=== PATIENT | female | born 1955 | race Caucasian/White ===

== ENCOUNTER → 2017-06-05 | Outpatient (CLI) | payer MEDICARE ==
[~2017-06-05] MED LIST: ADVIL200 M1 PO; ARTANE PO; GLUCOPHAGE500 MG PO; LOSARTAN POTASS25 MG PO; PROLIXIN PO; SPIRONOLACTONE50 MG PO; SYNTHROID150 MCG PO; XANAX0.5 MG PO; ZOLOFT50 MG PO
[2017-06-05 15:41] LABS: BILIRUBIN,URINE NEGATIVE (NEGATIVE); KETONES,URINE NEGATIVE (NEGATIVE); LEUKOCYTE ESTERASE ,URINE TRACE (NEGATIVE); NITRITE,URINE NEGATIVE (NEGATIVE); URINE UROBILINOGEN 0.2 mg/dL (0.2 - 1)
[2017-06-05 15:42] LABS: PROTEIN,URINE DIPSTICK 1+ (NEGATIVE)
[2017-06-05 15:43] LABS: CLARITY,URINE CLEAR (CLEAR); COLOR,URINE STRAW (YELLOW)
--- NOTE | 2017-06-05 17:36 | Diagnostic Imaging Report ---
PROCEDURE:KNEE THREE VIEWS BILATERAL COMPARISON:None. INDICATIONS:ONGOING BILATERAL KNEE PAIN FINDINGS: Right: There are no acute, displaced fractures, dislocations, lytic or blastic lesions. The bones are well-mineralized. Minimal tricompartmental degenerative joint changes with small marginal osteophytes in the patella and tibia. Joint spaces are relatively well-preserved. The soft-tissues are unremarkable. No suprapatellar effusion. Left: There are no acute, displaced fractures, dislocations, lytic or blastic lesions. The bones are well-mineralized. Minimal tricompartmental degenerative joint disease with presence of tiny marginal osteophytes in the patella. Joint spaces are otherwise well-preserved. The soft-tissues are unremarkable. No suprapatellar effusion. CONCLUSION: No acute abnormalities. Minimal bilateral degenerative changes. Rohit Magallanes M.D. Dictated by: Rohit Magallanes M.D. on 06/05/2017 at 17:44 Electronically approved by: Rohit Magallanes M.D. on 06/05/2017 at 17:44
--- NOTE | 2017-06-05 18:32 | Diagnostic Imaging Report ---
PROCEDURE:HIPS BILAT TWO VWS(+/- PELVIS) INDICATION:Bilateral hip pain COMPARISON:None. FINDINGS: Normal mineralization. No acute displaced fractures or dislocations. Joint spaces are relatively well-preserved. No lytic or blastic lesions. Soft tissues are grossly unremarkable. CONCLUSION: No acute abnormalities. Rohit Magallanes M.D. Dictated by: Rohit Magallanes M.D. on 06/05/2017 at 18:40 Electronically approved by: Rohit Magallanes M.D. on 06/05/2017 at 18:40
== END ==
LOC: RAD 14:40
PROVIDERS: ATTEND Internal Medicine Pulmonary Disease
DX: M25.552 Pain in left hip (principal); M25.551 Pain in right hip; M25.562 Pain in left knee; M25.561 Pain in right knee
CPT/HCPCS: 73521; 81003; 87086

== ENCOUNTER → 2017-09-17 | Outpatient (CLI) | payer MEDICARE ==
[2017-09-17 12:29] LABS: BASOPHILS # (AUTO) 0.1 (0.0-0.1); BASOPHILS % 0.6 % (0.0-1.0); EOSINOPHILS # (AUTO) 0.2 (0.0-0.4); EOSINOPHILS % 1.3 % (0.0-6.0); HEMATOCRIT 38.9 % (34.2-44.1); HEMOGLOBIN 13.1 g/dL (12.0-16.0); LYMPHOCYTES # (AUTO) 2.5 (1.0-3.2); LYMPHOCYTES % 18.9 % (18.0-39.1); MEAN CORPUSCULAR HEMOGLOBIN 28.9 pg (28-32); MEAN CORPUSCULAR HGB CONC 33.7 g/dL (31-35); MEAN CORPUSCULAR VOLUME 85.7 fL (81-99); MONOCYTES # (AUTO) 0.8 (0.2-0.8); MONOCYTES % 5.6 % (4.4-11.3); NEUTROPHILS # (AUTO) 9.8 (2.1-6.9); NEUTROPHILS % 73.1 % (38.7-80.0); PLATELET COUNT 301 x10e3/uL (140-360); RED BLOOD COUNT 4.54 x10e6/uL (3.6-5.1); RED CELL DISTRIBUTION WIDTH 13.6 % (11.7-14.4)
[2017-09-17 12:48] LABS: CALCIUM 10.5 mg/dL (8.4-10.2); CHOL/HDL RATIO 4.1 (3.0-3.6); CREATININE, SERUM 0.95 mg/dL (0.57-1.11)
== END ==
LOC: LAB 12:04
PROVIDERS: ATTEND Internal Medicine Pulmonary Disease
DX: E11.9 Type 2 diabetes mellitus without complications (principal)
CPT/HCPCS: 36415; 80048; 80061; 82044; 85025

== ENCOUNTER → 2018-01-01 | Outpatient (CLI) | payer MEDICARE ==
[2018-01-01 12:40] LABS: CALCIUM IONIZED 1.2 mmol/L (1.09-1.30)
[2018-01-01 12:55] LABS: ANION GAP 12.3 mmol/L (8-16); BLOOD UREA NITROGEN 7 mg/dL (7-26); BUN/CREATININE RATIO 9 (6-25); CALCIUM 10.3 mg/dL (8.4-10.2); CARBON DIOXIDE 29 mmol/L (22-29); CHLORIDE 98 mmol/L (98-107); CREATININE, SERUM 0.79 mg/dL (0.57-1.11); EST GLOMERULAR FILTRATION RATE > 60 ML/MIN (60-); GLUCOSE 124 mg/dL (74-118); POTASSIUM 4.3 mmol/L (3.5-5.1); SODIUM 135 mmol/L (136-145)
== END ==
LOC: LAB 12:19
PROVIDERS: ATTEND Internal Medicine Pulmonary Disease
DX: E11.9 Type 2 diabetes mellitus without complications (principal)
CPT/HCPCS: 36415; 80048; 82330; 82652; 83036; 83970

== ENCOUNTER → 2018-12-25 | Outpatient (CLI) | payer MEDICARE ==
[2018-12-25 15:43] LABS: BASOPHILS # (AUTO) 0.1 (0.0-0.1); BASOPHILS % 0.4 % (0.0-1.0); BILIRUBIN,URINE NEGATIVE (NEGATIVE); CLARITY,URINE CLOUDY (CLEAR); COLOR,URINE YELLOW (YELLOW); EOSINOPHILS # (AUTO) 0.2 (0.0-0.4); EOSINOPHILS % 1.1 % (0.0-6.0); HEMATOCRIT 37.3 % (34.2-44.1); HEMOGLOBIN 12.3 g/dL (12.0-16.0); KETONES,URINE NEGATIVE (NEGATIVE); LEUKOCYTE ESTERASE ,URINE SMALL (NEGATIVE); LYMPHOCYTES # (AUTO) 2.5 (1.0-3.2); LYMPHOCYTES % 18.5 % (18.0-39.1); MEAN CORPUSCULAR HEMOGLOBIN 28.7 pg (28-32); MEAN CORPUSCULAR VOLUME 86.9 fL (81-99); MONOCYTES % 7.1 % (4.4-11.3); NEUTROPHILS # (AUTO) 9.9 (2.1-6.9); NEUTROPHILS % 72.2 % (38.7-80.0); NITRITE,URINE NEGATIVE (NEGATIVE); PLATELET COUNT 281 x10e3/uL (140-360); PROTEIN,URINE DIPSTICK NEGATIVE (NEGATIVE); RED BLOOD COUNT 4.29 x10e6/uL (3.6-5.1); RED CELL DISTRIBUTION WIDTH 13.6 % (11.7-14.4); URINE UROBILINOGEN 0.2 mg/dL (0.2 - 1)
[2018-12-25 16:06] LABS: CHOL/HDL RATIO 3.8 (3.0-3.6)
[2018-12-25 16:13] LABS: B-TYPE NATRIURETIC PEPTIDE2 31.8 pg/mL (0-100)
[2018-12-25 16:26] LABS: FREE THYROXINE INDEX 2.7793 (1.4-3.8); THYROID STIMULATING HORMONE 4.202 uIU/mL (0.350-4.940)
--- NOTE | 2018-12-25 16:36 | Diagnostic Imaging Report ---
EXAMINATION: SP LUMBAR, COMPLETE MIN 4VW INDICATION: Back pain COMPARISON: None FINDINGS: No compression fracture. Vertebral body heights are maintained. There is grade 1 anterolisthesis at L4-5. Alignment is otherwise normal. Mild degenerative changes of the lower lumbar spine. Nonobstructive bowel gas pattern. Atherosclerotic arterial vascular calcifications. IMPRESSION: No compression fracture. Grade 1 anterolisthesis at L4-5. Lower lumbar spine degenerative changes. Signed by: Daniel Cheatham MD on 12/25/2018 4:33 PM
== END ==
LOC: RAD 14:57
PROVIDERS: ATTEND Internal Medicine Pulmonary Disease
DX: M54.5 Low back pain (principal); N39.0 Urinary tract infection, site not specified; E03.9 Hypothyroidism, unspecified
CPT/HCPCS: 36415; 72110; 80061; 81003; 83036; 83880; 84436; 84443; 84479; 85025; 87086

== ENCOUNTER → 2021-01-03 | Outpatient (CLI) | payer MEDICARE, OTHER ==
[~2021-01-03] MED LIST changes: +CELEBREX200 MG PO; +DOXYCYCLINE HY100 MG PO; +FLUPHENAZINE HC10 MG PO; +HYDRALAZINE HCL25 MG PO; +LYRICA75 MG PO; +METOPROLOL TART25 MG PO; +SPIRONOLACTONE25 MG PO; +SYNTHROID50 MCG PO; +TRIHEXYPHENIDYL5 MG PO; +aldomet PO
[2021-01-03 10:56] LABS: ANION GAP 12.6 mmol/L (8-16); CALCIUM 9.2 mg/dL (8.4-10.2); CREATININE, SERUM 0.93 mg/dL (0.57-1.11); POTASSIUM 4.6 mmol/L (3.5-5.1)
== END ==
LOC: RAD 10:14
PROVIDERS: ATTEND Internal Medicine Pulmonary Disease
DX: N39.0 Urinary tract infection, site not specified (principal)
CPT/HCPCS: 36415; 80048; 87086; 87186

== ENCOUNTER 2021-11-26 17:32 | Emergency (ER) | payer MEDICARE, OTHER ==
[~2021-11-26] VITALS: Ht 162.6 cm; Wt 136.1 kg
[2021-11-26 18:00] LABS: BASOPHILS % 0.2 % (0.0-1.0); EOSINOPHILS # (AUTO) 0.1 (0.0-0.4); EOSINOPHILS % 0.5 % (0.0-6.0); HEMATOCRIT 38.2 % (34.2-44.1); HEMOGLOBIN 12.4 g/dL (12.0-16.0); LYMPHOCYTES % 14.5 % (18.0-39.1); MEAN CORPUSCULAR HGB CONC 32.5 g/dL (31-35); MEAN CORPUSCULAR VOLUME 92.3 fL (81-99); MONOCYTES # (AUTO) 1.2 (0.2-0.8); MONOCYTES % 8.7 % (4.4-11.3); NEUTROPHILS # (AUTO) 10.3 (2.1-6.9); NEUTROPHILS % 74.8 % (38.7-80.0); PLATELET COUNT 306 x10e3/uL (140-360); RED BLOOD COUNT 4.14 x10e6/uL (3.6-5.1); RED CELL DISTRIBUTION WIDTH 13.2 % (11.7-14.4)
[2021-11-26 18:26] LABS: ALANINE AMINOTRANSFERASE 13 IU/L (0-55); ALBUMIN 3.6 g/dL (3.5-5.0); ALBUMIN/GLOBULIN RATIO 0.9 (0.8-2.0); ALKALINE PHOSPHATASE 140 IU/L (40-150); ANION GAP 16.9 mmol/L (8-16); BLOOD UREA NITROGEN 17 mg/dL (7-26); BUN/CREATININE RATIO 15 (6-25); CALCIUM 9.4 mg/dL (8.4-10.2); CARBON DIOXIDE 23 mmol/L (22-29); CHLORIDE 96 mmol/L (98-107); CREATINE KINASE 90 IU/L (29-168); CREATININE, SERUM 1.13 mg/dL (0.57-1.11); GLUCOSE 154 mg/dL (74-118); POTASSIUM 4.9 mmol/L (3.5-5.1); SODIUM 131 mmol/L (136-145)
[2021-11-26] MEDS ORDERED: MEPERIDINE HCL INJ 50 MG/ML INJ IV STA (20:28)
[2021-11-26] MEDS ORDERED: CIPRO500 MG PO (20:46)
[2021-11-26] MEDS ORDERED: KETOROLAC TROMETHAMINE 30 MG/ML VIAL ONE (21:09)
[2021-11-26] MEDS ORDERED: KETOROLAC TROME10 MG PO (22:44)
[2021-11-26] MEDS ORDERED: KETOROLAC TROMETHAMINE 30 MG/ML VIAL IV STA (23:10)
[2021-11-26 23:12] VITALS: BP 156/76
== END 2021-11-26 23:14 | disposition home or self-care (01) ==
LOC: ER 17:40
DX: S82.142A Displaced bicondylar fracture of left tibia, initial encounter for closed fracture (principal); W19.XXXA Unspecified fall, initial encounter; Y92.019 Unspecified place in single-family (private) house as the place of occurrence of the external cause; F20.9 Schizophrenia, unspecified; R42 Dizziness and giddiness; E66.9 Obesity, unspecified; Z68.43 Body mass index [BMI] 50.0-59.9, adult
CPT/HCPCS: 36415; 70450; 71045; 73560 ×2; 80053; 82550; 82553; 84484; 85025; 93005; 99284; J1885; J2175

== ENCOUNTER → 2022-03-06 | Outpatient (CLI) | payer MEDICARE, OTHER ==
[~2022-03-06] MED LIST changes: +CIPRO500 MG PO; +FUROSEMIDE INJ 10 MG/ML 4 ML VIAL ONE; +KETOROLAC TROME10 MG PO
== END ==
LOC: NM 13:11
PROVIDERS: ATTEND Urology
DX: N13.30 Unspecified hydronephrosis (principal)
CPT/HCPCS: 36415; 78708; 82948; A9562; J1940

== ENCOUNTER → 2022-08-21 | Outpatient (CLI) | payer MEDICARE, OTHER ==
[~2022-08-21] MED LIST changes: -FUROSEMIDE INJ 10 MG/ML 4 ML VIAL ONE
== END ==
LOC: CT 14:08
PROVIDERS: ATTEND Urology
DX: N20.0 Calculus of kidney (principal)
CPT/HCPCS: 74176